=== PATIENT | male | born 1960 | race Caucasian/White ===

== ENCOUNTER → 2022-11-21 | Outpatient (CLI) | payer BC | LOC: M SOG 08:48 | PROVIDERS: ATTEND Physician Assistant | DX: M25.531 Pain in right wrist (principal); M25.532 Pain in left wrist ==

== ENCOUNTER → 2022-11-22 | Outpatient (CLI) | payer BC | LOC: M CARPUL 09:55 | PROVIDERS: ATTEND Internal Medicine | DX: R60.0 Localized edema (principal); I48.91 Unspecified atrial fibrillation ==

== ENCOUNTER → 2022-12-14 | Outpatient (CLI) | payer BC ==
[2022-12-14 13:08] LABS: BLOOD UREA NITROGEN 19 MG/DL (9-23); CREATININE FOR GFR 0.68 MG/DL (0.70-1.30); GLOMERULAR FILTRATION RATE > 60.0 (>49)
== END ==
LOC: M LAB 12:14
PROVIDERS: ATTEND Orthopaedic Surgery Hand Surgery
DX: I87.2 Venous insufficiency (chronic) (peripheral) (principal); E66.8 Other obesity

== ENCOUNTER → 2022-12-15 | Outpatient (CLI) | payer BC | LOC: M PLARAD 09:02 | PROVIDERS: ATTEND Orthopaedic Surgery Hand Surgery | DX: M24.232 Disorder of ligament, left wrist (principal); M85.642 Other cyst of bone, left hand; M25.532 Pain in left wrist ==

== ENCOUNTER 2023-01-10 07:56 | Day surgery (SDC) | payer BC ==
[~2023-01-10] VITALS: Ht 170.2 cm; Wt 130.2 kg
[~2023-01-10 07:56] MED LIST: ASCO500C3 PO; D200CAP3 PO; ELIQ5TAB PO; GALZ50CA PO; LIDOCAINE 1% SDV 5ML VIAL SC PRN; LIDOCAINE 2% 100MG/5ML SDV (FOR ANES.) As Ordered ONE; LR 1,000 ML IV SCH; METO50TA7 PO; MIDAZOLAM INJ 2MG/2ML VIAL As Ordered ONE; POTA10808 PO; SLOWTAB2 PO; VITA1CAP21 PO; VITACAP8 PO; fentaNYL 100 MCG/2 ML INJECTION As Ordered ONE; propofoL 200 MG/20 ML VIAL As Ordered ONE
[2023-01-10] MEDS ORDERED: ONDANSETRON 4MG 2ML VIAL As Ordered ONE (09:30)
[2023-01-10] MEDS ORDERED: ACETAMINOPHEN 1000MG 100ML IV BAG As Ordered ONE (09:32)
[2023-01-10] MEDS ORDERED: KETOROLAC 60MG 2ML VIAL As Ordered ONE (09:35)
[2023-01-10] MEDS ORDERED: ONDANSETRON 4MG 2ML VIAL IV PRN (09:55)
[2023-01-10] MEDS ORDERED: oxyCODONE 5MG TAB PO PRN (09:55)
[2023-01-10] MEDS ORDERED: fentaNYL 100 MCG/2 ML INJECTION IV PRN (09:55)
[2023-01-10] MEDS ORDERED: LR 1,000 ML IV SCH (09:55)
[2023-01-10 11:35] VITALS: BP 124/87; TEMP 96.4; O2SAT 95
== END 2023-01-10 11:43 | disposition home or self-care (01) ==
LOC: M SDC 07:56
PROVIDERS: ATTEND Orthopaedic Surgery Hand Surgery
DX: G56.02 Carpal tunnel syndrome, left upper limb (principal); I48.0 Paroxysmal atrial fibrillation; I10 Essential (primary) hypertension; Z79.899 Other long term (current) drug therapy; Z79.01 Long term (current) use of anticoagulants
CPT/HCPCS: 29848; J0131; J0665; J1100; J1885; J2250; J2405; J3010

== ENCOUNTER → 2023-05-07 | Outpatient (CLI) | payer BC ==
[~2023-05-07] MED LIST changes: -LIDOCAINE 1% SDV 5ML VIAL SC PRN; -LIDOCAINE 2% 100MG/5ML SDV (FOR ANES.) As Ordered ONE; -LR 1,000 ML IV SCH; -MIDAZOLAM INJ 2MG/2ML VIAL As Ordered ONE; -fentaNYL 100 MCG/2 ML INJECTION As Ordered ONE; -propofoL 200 MG/20 ML VIAL As Ordered ONE
[2023-05-07 18:58] LABS: BASO % 0.4 % (0.0-1.0); EOS # 0.2 10^3/uL (0.0-0.5); EOS % 3.6 % (0.0-3.0); HEMATOCRIT 43.8 % (42.0-52.0); HEMOGLOBIN 14.6 g/dl (13.5-17.5); LYMPH # 2.1 10^3/uL (1.5-5.0); LYMPH % 30.5 % (24.0-44.0); MEAN CORPUSCULAR HEMOGLOBIN 31.7 pg (27.0-33.0); MEAN CORPUSCULAR HGB CONC 33.3 g/dl (32.0-36.5); MONO # 0.9 10^3/uL (0.0-0.8); NEUTROPHILS # 3.5 10^3/uL (1.5-8.5); NEUTROPHILS % 51.2 % (36.0-66.0); PLATELET COUNT, AUTOMATED 179 10^3/uL (150-450); RED BLOOD COUNT 4.61 10^6/uL (4.30-6.10); WHITE BLOOD COUNT 6.7 10^3/uL (4.0-10.0)
[2023-05-07 19:16] LABS: HEMOGLOBIN A1c 5.7 % (4.0-6.0)
[2023-05-07 19:27] LABS: ALBUMIN 3.6 G/DL (3.2-5.2); ALKALINE PHOSPHATASE 61 U/L (46-116); ALT/SGPT 22 U/L (7.0-40); AST/SGOT 15 U/L (<34); BILIRUBIN,TOTAL 0.5 MG/DL (0.3-1.2); BLOOD UREA NITROGEN 16 MG/DL (9-23); CALCIUM LEVEL 9.6 MG/DL (8.3-10.6); CARBON DIOXIDE LEVEL 30 MMOL/L (20-31); CHLORIDE LEVEL 106 MMOL/L (98-107); CREATININE FOR GFR 0.62 MG/DL (0.70-1.30); GLOMERULAR FILTRATION RATE > 60.0 (>49); GLUCOSE, FASTING 84 MG/DL (74-106); POTASSIUM SERUM 4.2 MMOL/L (3.5-5.1); SODIUM LEVEL 142 MMOL/L (136-145); TOTAL 25(OH) VITAMIN D 29.9 NG/ML (20.0-100.0); TOTAL PROTEIN 6.5 G/DL (5.7-8.2)
== END ==
LOC: M PLALAB 15:53
PROVIDERS: ATTEND Orthopaedic Surgery
DX: M17.0 Bilateral primary osteoarthritis of knee (principal)

== ENCOUNTER → 2023-05-07 | Outpatient (CLI) | payer BC | LOC: M SOG 08:34 | PROVIDERS: ATTEND Orthopaedic Surgery | DX: M17.0 Bilateral primary osteoarthritis of knee (principal); M25.561 Pain in right knee; M25.562 Pain in left knee ==

== ENCOUNTER → 2023-06-22 | Outpatient (CLI) | payer BC | LOC: M RAD 13:06 | PROVIDERS: ATTEND Surgery | DX: I83.893 Varicose veins of bilateral lower extremities with other complications (principal); I87.2 Venous insufficiency (chronic) (peripheral) ==

== ENCOUNTER → 2023-08-27 | Outpatient (CLI) | payer BC | LOC: M WHC 10:12 | PROVIDERS: ATTEND Nurse Practitioner Family | DX: I83.813 Varicose veins of bilateral lower extremities with pain (principal) ==

== ENCOUNTER → 2024-03-03 | Outpatient (CLI) | payer BC ==
[~2024-03-03] MED LIST changes: +POTA10807 PO; -POTA10808 PO
[2024-03-03 14:59] LABS: BASO % 0.6 % (0.0-1.0); EOS # 0.1 10^3/uL (0.0-0.5); EOS % 1.4 % (0.0-3.0); HEMATOCRIT 43.1 % (42.0-52.0); HEMOGLOBIN 14.6 g/dl (13.5-17.5); LYMPH # 1.8 10^3/uL (1.5-5.0); LYMPH % 28.4 % (24.0-44.0); MEAN CORPUSCULAR HEMOGLOBIN 31.7 pg (27.0-33.0); MEAN CORPUSCULAR HGB CONC 33.9 g/dl (32.0-36.5); MEAN CORPUSCULAR VOLUME 93.7 fl (80.0-96.0); MONO # 0.7 10^3/uL (0.0-0.8); MONO % 10.9 % (2.0-8.0); NEUTROPHILS # 3.6 10^3/uL (1.5-8.5); NEUTROPHILS % 58.5 % (36.0-66.0); PLATELET COUNT, AUTOMATED 152 10^3/uL (150-450); WHITE BLOOD COUNT 6.2 10^3/uL (4.0-10.0)
[2024-03-03 15:11] LABS: C REACTIVE PROTEIN QUANTITATIV < 0.50 MG/DL (<1.0)
[2024-03-03 15:12] LABS: ALBUMIN 3.8 G/DL (3.2-5.2); ALKALINE PHOSPHATASE 65 U/L (40-129); ALT/SGPT 25 U/L (7.0-40); AST/SGOT 19 U/L (<34); BILIRUBIN,TOTAL 0.8 MG/DL (0.3-1.2); BLOOD UREA NITROGEN 16 MG/DL (9-23); CALCIUM LEVEL 10.5 MG/DL (8.3-10.6); CARBON DIOXIDE LEVEL 30 MMOL/L (20-31); CHLORIDE LEVEL 106 MMOL/L (98-107); GLOMERULAR FILTRATION RATE > 60.0 (>49); GLUCOSE, FASTING 93 MG/DL (74-106); POTASSIUM SERUM 4.8 MMOL/L (3.5-5.1); SODIUM LEVEL 142 MMOL/L (136-145); TOTAL PROTEIN 7.1 G/DL (5.7-8.2)
[2024-03-03 15:15] LABS: TOTAL 25(OH) VITAMIN D 34.2 NG/ML (20.0-100.0)
[2024-03-03 15:16] LABS: INR 1.52; PROTHROMBIN TIME 18.6 SECONDS (12.5-14.5)
[2024-03-03 15:18] LABS: HEMOGLOBIN A1c 5.3 % (4.0-6.0)
== END ==
LOC: M PLALAB 12:48
PROVIDERS: ATTEND Orthopaedic Surgery
DX: M17.0 Bilateral primary osteoarthritis of knee (principal)

== ENCOUNTER → 2024-03-03 | Outpatient (CLI) | payer BC | LOC: M SOG 07:53 | PROVIDERS: ATTEND Orthopaedic Surgery | DX: R10.2 Pelvic and perineal pain (principal); M17.0 Bilateral primary osteoarthritis of knee ==

== ENCOUNTER → 2024-05-26 | Outpatient (CLI) | payer BC, OTHER ==
[~2024-05-26] MED LIST changes: +HYDR-4517 PO; +SEMA0.257 SQ; +THERTAB52 PO; +WARF4TAB52 PO
== END ==
LOC: M RAD 10:30
PROVIDERS: ATTEND Orthopaedic Surgery
DX: M17.0 Bilateral primary osteoarthritis of knee (principal)

== ENCOUNTER 2024-06-09 06:04 | Observation (INO) | payer BC, OTHER ==
[2024-06-09] VITALS (7 sets, daily range): BP systolic 95–134; BP diastolic 55–74; TEMP 97.4–97.8; O2SAT 90–97
[~2024-06-09] VITALS: Ht 170.2 cm; Wt 125.8 kg
[~2024-06-09 06:04] MED LIST changes: +ONDANSETRON 4MG 2ML VIAL IV PRN; +fentaNYL 100 MCG/2 ML INJECTION IV PRN; +oxyCODONE 5MG TAB PO PRN
[2024-06-09] MEDS ORDERED: fentaNYL 100 MCG/2 ML INJECTION As Ordered ONE (06:50)
[2024-06-09] MEDS ORDERED: propofoL 200 MG/20 ML VIAL As Ordered ONE (06:50)
[2024-06-09] MEDS ORDERED: ROCURONIUM BROMIDE 50MG/5ML VIAL As Ordered ONE (06:50)
[2024-06-09] MEDS ORDERED: MIDAZOLAM INJ 2MG/2ML VIAL As Ordered ONE (06:50)
[2024-06-09] MEDS ORDERED: LIDOCAINE 2% INJ 100 MG/5 ML SYRINGE As Ordered ONE (06:50)
[2024-06-09] MEDS: LR 1,000 ML IV SCH ×3 (07:15→14:31)
[2024-06-09] MEDS: ceFAZolin SODIUM 3 GM in DEXTROSE 5% (D5W) MINI-BAG PLU 100 ML IV ONE (07:35)
[2024-06-09] MEDS ORDERED: HYDROmorphone HCL 2MG/ML 1ML VIAL As Ordered ONE (07:56)
[2024-06-09] MEDS: ceFAZolin SODIUM 3 GM VIAL As Ordered ONE (08:12)
[2024-06-09] MEDS: TRANEXAMIC ACID 100 MG/ML 10ML VIAL As Ordered ONE (08:15)
[2024-06-09] MEDS ORDERED: ACETAMINOPHEN 1000MG/100ML IV BAG As Ordered ONE (08:23)
[2024-06-09] MEDS: ceFAZolin 1GM VIAL As Ordered ONE (08:33)
[2024-06-09] MEDS: VANCOMYCIN 1000MG/20ML VIAL As Ordered ONE (08:34)
[2024-06-09] MEDS ORDERED: PHENYLEPHRINE 10MG/ML 1ML VIAL As Ordered ONE (08:44)
[2024-06-09] MEDS ORDERED: METOCLOPRAMIDE INJ 10MG/2ML VIAL As Ordered ONE (08:54)
[2024-06-09] MEDS ORDERED: ONDANSETRON 4MG 2ML VIAL As Ordered ONE (08:55)
[2024-06-09] MEDS ORDERED: SUGAMMADEX SODIUM 500 MG/5 ML VIAL (BRIDION) As Ordered ONE (08:55)
[2024-06-09] MEDS: REK 50ML SYRINGE IA ONE (09:28)
[2024-06-09] MEDS ORDERED: ONDANSETRON 4MG 2ML VIAL IV PRN (10:10)
[2024-06-09] MEDS ORDERED: oxyCODONE 5MG TAB PO PRN (10:10)
[2024-06-09] MEDS ORDERED: SENNA 8.6 MG TAB (SENOKOT) PO PRN (10:10)
[2024-06-09] MEDS ORDERED: fentaNYL 100 MCG/2 ML INJECTION IV PRN (10:15)
[2024-06-09] MEDS ORDERED: WARF-21 PO (11:10)
[2024-06-09] MEDS: ONDANSETRON 4MG 2ML VIAL IV PRN (11:11)
[2024-06-09] MEDS ORDERED: METO1TAB7 PO (11:12)
[2024-06-09] MEDS: oxyCODONE 5MG TAB PO PRN ×2 (11:12→16:10)
[2024-06-09] MEDS ORDERED: HOME MED LIST COMPLETE! XX SCH (11:15)
[2024-06-09] MEDS: HYDROMORPHONE HCL 0.5 MG/ 0.5 ML SYRINGE IV PRN (11:32)
[2024-06-09] MEDS: METOPROLOL TART 50 MG TAB PO SCH (14:31)
[2024-06-09] MEDS: ACETAMINOPHEN 325 MG TAB PO SCH (16:10)
[2024-06-09] MEDS: ceFAZolin SODIUM 2 GM in DEXTROSE 5% (D5W) ADV/MINI-BAG 50 ML IV SCH (16:10)
[2024-06-09] MEDS: DOCUSATE SODIUM 100MG CAPSULE PO SCH (20:22)
[2024-06-10 04:00] VITALS: BP 103/54; TEMP 97.4; O2SAT 98
[2024-06-10 06:42] LABS: ALBUMIN 2.9 G/DL (3.2-5.2); ALKALINE PHOSPHATASE 39 U/L (40-129); ALT/SGPT 15 U/L (7.0-40); AST/SGOT 25 U/L (<34); BILIRUBIN,TOTAL 1.2 MG/DL (0.3-1.2); BLOOD UREA NITROGEN 12 MG/DL (9-23); CALCIUM LEVEL 8.8 MG/DL (8.3-10.6); CARBON DIOXIDE LEVEL 29 MMOL/L (20-31); CHLORIDE LEVEL 106 MMOL/L (98-107); CREATININE FOR GFR 0.56 MG/DL (0.70-1.30); GLOMERULAR FILTRATION RATE > 60.0 (>49); GLUCOSE, FASTING 125 MG/DL (74-106); POTASSIUM SERUM 4.4 MMOL/L (3.5-5.1); SODIUM LEVEL 140 MMOL/L (136-145); TOTAL PROTEIN 5.3 G/DL (5.7-8.2)
[2024-06-10 06:48] LABS: INR 1.06; PROTHROMBIN TIME 14.1 SECONDS (12.5-14.5)
[2024-06-10 07:00] LABS: HEMATOCRIT 32.2 % (42.0-52.0); MEAN CORPUSCULAR HEMOGLOBIN 31.6 pg (27.0-33.0); MEAN CORPUSCULAR HGB CONC 34.2 g/dl (32.0-36.5); MEAN CORPUSCULAR VOLUME 92.5 fl (80.0-96.0); PLATELET COUNT, AUTOMATED 123 10^3/uL (150-450); RED BLOOD COUNT 3.48 10^6/uL (4.30-6.10); WHITE BLOOD COUNT 6.9 10^3/uL (4.0-10.0)
[2024-06-10 08:00] VITALS: BP 111/65; TEMP 97.5; O2SAT 98
[2024-06-10] MEDS: ASCORBIC ACID 500 MG TAB PO SCH (08:00)
[2024-06-10] MEDS: CEFDINIR 300 MG CAP (OMNICEF) PO SCH (08:00)
[2024-06-10] MEDS: FERROUS SULFATE 325MG TAB PO SCH (08:00)
[2024-06-10 08:08] VITALS: BP 112/56
[2024-06-10] MEDS ORDERED: CEFD300CAP PO (09:35)
[2024-06-10] MEDS ORDERED: ENDO5TAB PO (09:35)
[2024-06-10] MEDS ORDERED: ACET32TAB PO (09:35)
[2024-06-10 12:00] VITALS: BP 109/53; TEMP 97.6; O2SAT 93
== END 2024-06-10 13:55 | disposition home or self-care (01) ==
LOC: M SDC 06:04 → M MS5PR 06:05
PROVIDERS: ADMIT Orthopaedic Surgery; ATTEND Orthopaedic Surgery
DX: M17.11 Unilateral primary osteoarthritis, right knee (principal); Z68.41 Body mass index [BMI] 40.0-44.9, adult; I48.91 Unspecified atrial fibrillation; G47.9 Sleep disorder, unspecified; Z79.899 Other long term (current) drug therapy; Z87.891 Personal history of nicotine dependence
CPT/HCPCS: 27447; 36415; 73560; 80053; 85027; 85610; 88300; 96374; 96376; 97116; 97161; 97165; 97530; 97535; C1776; G0378; J0131; J0171; J0690; J1171; J1885; J2250; J2371; J2405; J2765; J2795; J3010; J3370

== ENCOUNTER → 2024-06-20 | Outpatient (CLI) | payer OTHER ==
[~2024-06-20] MED LIST changes: +ACET32TAB PO; +CEFD300CAP PO; +ENDO5TAB PO; +METO1TAB7 PO; -ONDANSETRON 4MG 2ML VIAL IV PRN; +WARF-21 PO; -fentaNYL 100 MCG/2 ML INJECTION IV PRN; -oxyCODONE 5MG TAB PO PRN
== END ==
LOC: M SOG 07:45
PROVIDERS: ATTEND Orthopaedic Surgery
DX: Z96.651 Presence of right artificial knee joint (principal); Z47.1 Aftercare following joint replacement surgery

== ENCOUNTER → 2024-07-31 | Outpatient (CLI) | payer OTHER ==
[~2024-07-31] MED LIST changes: -GALZ50CA PO; +ZINC50CA4 PO
== END ==
LOC: M SOG 06:51
PROVIDERS: ATTEND Orthopaedic Surgery
DX: Z53.9 Procedure and treatment not carried out, unspecified reason (principal)

== ENCOUNTER → 2024-09-29 | Outpatient (CLI) | payer OTHER ==
[2024-09-29 12:40] LABS: BASO # 0.0 10^3/uL (0.0-0.2); BASO % 0.8 % (0.0-1.0); EOS # 0.1 10^3/uL (0.0-0.5); EOS % 1.8 % (0.0-3.0); LYMPH # 1.5 10^3/uL (1.5-5.0); LYMPH % 28.8 % (24.0-44.0); MONO # 0.6 10^3/uL (0.0-0.8); MONO % 10.9 % (2.0-8.0); NEUTROPHILS # 2.9 10^3/uL (1.5-8.5); NEUTROPHILS % 57.5 % (36.0-66.0); PLATELET COUNT, AUTOMATED 151 10^3/uL (150-450)
[2024-09-29 12:52] LABS: INR 2.06
[2024-09-29 13:06] LABS: ESTIMATED AVERAGE GLUCOSE 108.0 MG/DL (60-110)
[2024-09-29 13:15] LABS: C REACTIVE PROTEIN QUANTITATIV < 0.50 MG/DL (<1.0)
[2024-09-29 13:17] LABS: TOTAL 25(OH) VITAMIN D 47.0 NG/ML (20.0-100.0)
[2024-09-29 13:22] LABS: ALT/SGPT 21 U/L (7.0-40); AST/SGOT 25 U/L (<34); CALCIUM LEVEL 10.1 MG/DL (8.3-10.6); CARBON DIOXIDE LEVEL 29 MMOL/L (20-31); CHLORIDE LEVEL 105 MMOL/L (98-107); CREATININE FOR GFR 0.52 MG/DL (0.70-1.30); GLOMERULAR FILTRATION RATE > 90.0 (>49); POTASSIUM SERUM 4.4 MMOL/L (3.5-5.1); SODIUM LEVEL 143 MMOL/L (136-145)
== END ==
LOC: M LAB 11:35
PROVIDERS: ATTEND Orthopaedic Surgery
DX: M17.12 Unilateral primary osteoarthritis, left knee (principal); Z79.01 Long term (current) use of anticoagulants; Z79.899 Other long term (current) drug therapy

== ENCOUNTER → 2024-10-20 | Outpatient (REF) | payer BC, OTHER ==
[~2024-10-20] MED LIST changes: +SLOW1TAB3 PO; -SLOWTAB2 PO
== END ==
LOC: M LAB REF 17:14
PROVIDERS: ATTEND Nurse Practitioner Adult Health
DX: N39.0 Urinary tract infection, site not specified (principal)

== ENCOUNTER → 2024-10-27 | Outpatient (CLI) | payer OTHER ==
[~2024-10-27] MED LIST changes: +BACL1TAB9 PO; +CYCL-707 PO; +GABA-1172 PO; +HYDR-3719 PO; +LISI20TA33 PO; +TAMS1CAP17 PO
== END ==
LOC: M RAD 10:28
PROVIDERS: ATTEND Orthopaedic Surgery
DX: M17.12 Unilateral primary osteoarthritis, left knee (principal)

== ENCOUNTER 2024-11-10 07:14 | Day surgery (SDC) | payer OTHER ==
[2024-11-10] VITALS (8 sets, daily range): BP systolic 93–110; BP diastolic 52–62; TEMP 96.5–98.3; O2SAT 93–97
[~2024-11-10] VITALS: Ht 168.9 cm; Wt 124.7 kg
[2024-11-10] MEDS ORDERED: ROCURONIUM BROMIDE 50MG/5ML VIAL As Ordered ONE (07:28)
[2024-11-10] MEDS ORDERED: LIDOCAINE 2% INJ 100 MG/5 ML SYRINGE As Ordered ONE (07:28)
[2024-11-10] MEDS ORDERED: MAGN300T2 PO (08:07)
[2024-11-10] MEDS ORDERED: LIDO1PAD TOP (08:07)
[2024-11-10] MEDS ORDERED: DICL100G11 TOP (08:07)
[2024-11-10] MEDS ORDERED: VITA1TAB82 PO (08:07)
[2024-11-10] MEDS ORDERED: OXYC10TA3 PO (08:07)
[2024-11-10] MEDS ORDERED: LIONS MANE PO (08:07)
[2024-11-10] MEDS ORDERED: SELE200T10 PO (08:07)
[2024-11-10] MEDS ORDERED: SENN-186 PO (08:07)
[2024-11-10] MEDS ORDERED: SILD100T PO (08:07)
[2024-11-10] MEDS ORDERED: TUMERIC PO (08:07)
[2024-11-10] MEDS ORDERED: DOCU100C16 PO (08:07)
[2024-11-10] MEDS ORDERED: CHEL50TA3 PO (08:07)
[2024-11-10] MEDS ORDERED: HOME MED LIST COMPLETE! XX SCH (08:10)
[2024-11-10 09:03] LABS: INR 0.98
[2024-11-10] MEDS ORDERED: LR 1,000 ML IV SCH ×2 (09:15→11:55)
[2024-11-10] MEDS: TRANEXAMIC ACID INJection 1,000 MG in NS 100 ML IV ONE (09:30)
[2024-11-10] MEDS: ceFAZolin SOD 3 GM in DEXTROSE 5% (D5W) MINI-BAG PLU 1... IV ONE (09:30)
[2024-11-10] MEDS ORDERED: HYDROmorphone HCL 2 MG/ML 1 ML VIAL As Ordered ONE (09:58)
[2024-11-10] MEDS: TRANEXAMIC ACID 100 MG/ML 10ML VIAL As Ordered ONE (10:00)
[2024-11-10] MEDS ORDERED: ACETAMINOPHEN 1000MG/100ML IV BAG As Ordered ONE (10:02)
[2024-11-10] MEDS ORDERED: dexAMETHasone 4 MG/ML 1 ML VIAL As Ordered ONE (10:02)
[2024-11-10] MEDS ORDERED: ESMOLOL 100 MG/10 ML VIAL As Ordered ONE (10:02)
[2024-11-10] MEDS ORDERED: PHENYLephrine 500MCG 5ML (100MCG/ML) SYRINGE As Ordered ONE (10:03)
[2024-11-10] MEDS ORDERED: ONDANSETRON 4MG 2ML VIAL As Ordered ONE (10:11)
[2024-11-10] MEDS: VANCOMYCIN 1000MG/20ML VIAL As Ordered ONE (11:19)
[2024-11-10] MEDS: REK 50ML SYRINGE IA ONE (11:27)
[2024-11-10] MEDS ORDERED: SENNA 8.6 MG TAB PO PRN (12:00)
[2024-11-10] MEDS: HYDROMORPHONE HCL 0.5 MG/0.5 ML SYRINGE IV PRN (12:28)
[2024-11-10] MEDS: ONDANSETRON 4MG 2ML VIAL IV PRN (12:28)
[2024-11-10] MEDS ORDERED: PILL CUTTER 1 EACH XX PRN (12:35)
[2024-11-10 12:57] LABS: INR 1.1
[2024-11-10] MEDS ORDERED: ONDANSETRON 4MG 2ML VIAL IV PRN (14:00)
[2024-11-10] MEDS: ACETAMINOPHEN 325 MG TAB PO SCH (17:29)
[2024-11-10] MEDS: ceFAZolin SODIUM 2 GM in DEXTROSE 5% (D5W) ADV/MINI-BAG 50 ML IV SCH (17:30)
[2024-11-10] MEDS ORDERED: DOCUSATE SODIUM 100 MG CAPSULE PO SCH (21:00)
[2024-11-10] MEDS: DOCUSATE SODIUM 100 MG CAPSULE PO SCH (21:00)
[2024-11-10] MEDS: CYCLOBENZAPRINE 10 MG TABLET PO PRN (21:05)
[2024-11-10] MEDS: METOPROLOL SUCC. 25 MG *XL* TAB PO SCH (21:05)
[2024-11-11 03:58] VITALS: BP 99/55; TEMP 97.5; O2SAT 98
[2024-11-11 07:45] VITALS: BP 118/72; TEMP 97.8; O2SAT 97
[2024-11-11 07:45] LABS: PLATELET COUNT, AUTOMATED 162 10^3/uL (150-450)
[2024-11-11 08:01] LABS: INR 0.96
[2024-11-11 08:09] LABS: ALT/SGPT 21 U/L (7.0-40); AST/SGOT 21 U/L (<34); CALCIUM LEVEL 9.3 MG/DL (8.3-10.6); CARBON DIOXIDE LEVEL 29 MMOL/L (20-31); CHLORIDE LEVEL 102 MMOL/L (98-107); CREATININE FOR GFR 0.59 MG/DL (0.70-1.30); GLOMERULAR FILTRATION RATE > 90.0 (>49); POTASSIUM SERUM 4.7 MMOL/L (3.5-5.1); SODIUM LEVEL 141 MMOL/L (136-145)
[2024-11-11] MEDS: ASCORBIC ACID 500 MG TAB PO SCH (08:28)
[2024-11-11] MEDS: FERROUS SULFATE 325 MG TAB PO SCH (08:28)
[2024-11-11 08:29] VITALS: BP 118/72
[2024-11-11] MEDS ORDERED: CLOT1CRE56 TOP (10:50)
[2024-11-11] MEDS ORDERED: WARFARIN SOD 7.5MG TAB PO SCH (17:00)
[2024-11-14] MEDS ORDERED: WARFARIN SOD 7.5MG TAB PO SCH (17:00)
== END 2024-11-11 11:30 | disposition home or self-care (01) ==
LOC: M SDC 07:14 → M MS4PR 13:36 → M SDC 11-11 11:30
PROVIDERS: ATTEND Orthopaedic Surgery
DX: M17.12 Unilateral primary osteoarthritis, left knee (principal); M25.762 Osteophyte, left knee; I48.91 Unspecified atrial fibrillation; I10 Essential (primary) hypertension; N40.0 Benign prostatic hyperplasia without lower urinary tract symptoms; Z79.01 Long term (current) use of anticoagulants; Z79.899 Other long term (current) drug therapy; Z96.651 Presence of right artificial knee joint; Z90.49 Acquired absence of other specified parts of digestive tract
CPT/HCPCS: 27447; 36415; 73560; 80053; 85027; 85610; 88300; 97110; 97116; 97161; 97165; 97530; C1776; J0131; J0169; J0690; J1100; J1171; J1805; J1885; J2371; J2405; J2795; J3010; J3373

== ENCOUNTER → 2024-11-21 | Outpatient (CLI) | payer OTHER ==
[~2024-11-21] MED LIST changes: +CHEL50TA3 PO; +CLOT1CRE56 TOP; +DICL100G11 TOP; +DOCU100C16 PO; +LIDO1PAD TOP; +LIONS MANE PO; +MAGN300T2 PO; +OXYC10TA3 PO; +SELE200T10 PO; +SENN-186 PO; +SILD100T PO; +TUMERIC PO; +VITA1TAB82 PO
== END ==
LOC: M SOG 07:25
PROVIDERS: ATTEND Orthopaedic Surgery
DX: Z96.652 Presence of left artificial knee joint (principal); Z47.1 Aftercare following joint replacement surgery; M25.462 Effusion, left knee; M79.89 Other specified soft tissue disorders

== ENCOUNTER → 2024-12-12 | Outpatient (REF) | payer OTHER, BC ==
[2024-12-12 18:04] LABS: AMORPHOUS SEDIMENT SMALL (NEGATIVE); APPEARANCE, URINE CLOUDY (CLEAR); BACTERIA, URINE AUTO NEGATIVE (NEGATIVE); BILIRUBIN, URINE AUTO NEGATIVE (NEGATIVE); BLOOD, URINE BLOOD NEGATIVE (NEGATIVE); GLUCOSE, URINE (UA) AUTO NEGATIVE (NEGATIVE); KETONE, URINE AUTO NEGATIVE (NEGATIVE); LEUKOCYTE ESTERASE, URINE AUTO NEGATIVE (NEGATIVE); NITRITE, URINE AUTO NEGATIVE (NEGATIVE); PROTEIN, URINE AUTO NEGATIVE (NEGATIVE); RBC, URINE AUTO 0 /HPF (0-3); SPECIFIC GRAVITY URINE AUTO 1.012 (1.002-1.035); SQUAMOUS EPITHELIAL CELL UR AU 0 /HPF (0-6); UROBILINOGEN, URINE AUTO 0.2 mg/dL (0.0-2.0); WBC, URINE AUTO 0 /HPF (0-3)
== END ==
LOC: M SMT 16:44
PROVIDERS: ATTEND Nurse Practitioner Family
DX: N40.1 Benign prostatic hyperplasia with lower urinary tract symptoms (principal)

== ENCOUNTER → 2024-12-19 | Outpatient (CLI) | payer BC | LOC: M SOG 09:50 | PROVIDERS: ATTEND Orthopaedic Surgery | DX: Z96.652 Presence of left artificial knee joint (principal); Z47.1 Aftercare following joint replacement surgery ==

== ENCOUNTER → 2025-01-01 | Outpatient (CLI) | payer BC | LOC: M SOG 07:22 | PROVIDERS: ATTEND Orthopaedic Surgery | DX: Z96.652 Presence of left artificial knee joint (principal); Z47.1 Aftercare following joint replacement surgery ==